=== PATIENT | male | born 1995 | race Two or more races ===

== ENCOUNTER 2025-03-18 02:18 | Emergency (ER) | payer SELFPAY ==
[~2025-03-18] VITALS: Ht 180.3 cm; Wt 92.0 kg
[2025-03-18 02:25] VITALS: BP 131/78; PULSE 62; RESP 16; TEMP 97.9; O2SAT 99
== END 2025-03-18 03:15 | disposition left against medical advice (07) ==
LOC: ER 02:18
DX: S81.819D Laceration without foreign body, unspecified lower leg, subsequent encounter (principal); Z53.21 Procedure and treatment not carried out due to patient leaving prior to being seen by health care provider; X58.XXXD Exposure to other specified factors, subsequent encounter